=== PATIENT | male | born 1975 | race Caucasian/White ===

== ENCOUNTER 2018-02-10 09:45 | Emergency (ER) | payer SELFPAY ==
[~2018-02-10] VITALS: Ht 170.2 cm; Wt 90.7 kg
[2018-02-10 09:57] VITALS: BP_SYST 110
[2018-02-10 11:04] VITALS: BP_SYST 110
== END 2018-02-10 11:04 | disposition home or self-care (01) ==
LOC: SED 09:45
DX: M54.5 Low back pain (principal); M54.6 Pain in thoracic spine; M86.9 Osteomyelitis, unspecified; V43.92XA Unspecified car occupant injured in collision with other type car in traffic accident, initial encounter; Y93.89 Activity, other specified; Y92.410 Unspecified street and highway as the place of occurrence of the external cause; Y99.8 Other external cause status
CPT/HCPCS: 99282

== ENCOUNTER 2018-06-21 07:25 | Emergency (ER) | payer OTHER, MEDICAID ==
[~2018-06-21] VITALS: Ht 170.2 cm; Wt 117.9 kg
[2018-06-21 07:33] VITALS: BP_SYST 136
[2018-06-21] MEDS ORDERED: LIDOCAINE VISCOUS 2%, 15 ML UDC MM ONE (07:45)
[2018-06-21] MEDS ORDERED: LIDOCAINE VISCOUS 2%, 15 ML UDC ONE ×2 (07:53→07:54)
[2018-06-21] MEDS ORDERED: MORPHINE 4 MG/ML INJ. SYRINGE IM ONE (08:00)
[2018-06-21 08:30] VITALS: BP_SYST 136
== END 2018-06-21 08:30 | disposition left against medical advice (07) ==
LOC: SED 07:25
DX: K02.9 Dental caries, unspecified (principal)
CPT/HCPCS: 96372; 99283; J2001; J2270

== ENCOUNTER 2018-10-24 13:06 | Emergency (ER) | payer MEDICAID, OTHER ==
[~2018-10-24] VITALS: Ht 170.2 cm; Wt 98.9 kg
[2018-10-24 13:22] VITALS: BP_SYST 132
[2018-10-24] MEDS ORDERED: KETOROLAC TROMETHAMINE 60 MG/2 ML VIAL IM ONE (13:45)
[2018-10-24 14:09] VITALS: BP_SYST 128
== END 2018-10-24 14:09 | disposition home or self-care (01) ==
LOC: SED 13:06
DX: G56.03 Carpal tunnel syndrome, bilateral upper limbs (principal); R03.0 Elevated blood-pressure reading, without diagnosis of hypertension
CPT/HCPCS: 29125; 96372; 99283; J1885